=== PATIENT | female | born 1970 | race Caucasian/White ===

== ENCOUNTER → 2025-02-27 | Outpatient (CLI) | payer MEDICAID, SELFPAY ==
--- NOTE | 2025-02-27 15:39 | XR_ITS ---
Examination: Abdomen AP single view Technique: AP portable supine abdomen, single view Exam date and time: February 27, 2025 1550 hours INDICATIONS: History kidney stones FINDINGS: Probable ventriculoperitoneal shunt tube No definite renal calculi. Calcification in the left pelvis 15 mm consistent with a bladder calculus, clinical correlation advised No free air IMPRESSION: 15 mm bladder calculus versus calculus at the left ureterovesical junction
== END | disposition home or self-care (01) ==
PROVIDERS: Referring Provider Surgery; Visit Provider Surgery
DX: N21.0 Calculus in bladder (principal)
CPT/HCPCS: 74018

== ENCOUNTER → 2025-05-03 | Outpatient (CLI) | payer MEDICAID, SELFPAY ==
--- NOTE | 2025-05-03 | XR_ITS ---
Examination: Abdomen AP single view Technique: AP portable supine abdomen, single view Exam date and time: May 03, 2025, 1305 hours, comparison April 14, 2025 INDICATIONS: History ureteral calculi, post stent placement FINDINGS: 15 mm calculus adjacent to the lower portion left ureteral stent Left ureteral stent in satisfactory position Moderate stool throughout the colon IMPRESSION: Left ureteral stent satisfactory position
== END | disposition home or self-care (01) ==
LOC: CDIM 12:26
PROVIDERS: Referring Provider Surgery; Visit Provider Surgery
DX: N20.1 Calculus of ureter (principal)
CPT/HCPCS: 74018